=== PATIENT | female | born 1965 | race Caucasian/White ===

== ENCOUNTER 2021-12-14 20:36 | Inpatient (IN) ==
[2021-12-14] MEDS ORDERED: Naloxone 0.4 MG/ML INJ IVP PRN (23:56)
[2021-12-14] MEDS ORDERED: Melatonin 3 MG TABLET PO PRN (23:56)
[2021-12-15] MEDS ORDERED: *HR* LORazepam 1 MG TABLET PO PRN ×3 (00:44)
[2021-12-15] MEDS: Lactulose Oral Soln 20 GM/30 ML UDC PO SCH ×3 (01:50→20:18)
[2021-12-15] MEDS: Thiamine (B-1) 100 MG in 0.9 % Sodium Chloride 50 ML IVPB SCH (01:50)
[2021-12-15] MEDS: predniSONE 20 MG TABLET PO SCH ×2 (05:06→08:23)
[2021-12-15] MEDS ORDERED: Lactulose Oral Soln 20 GM/30 ML UDC PO ONE (05:12)
[2021-12-15 05:53] LABS: Monocytes % 16.3 %; Red Cell Distribution Width 14.6 % (11.5-14.5)
[2021-12-15 05:55] LABS: Basophils % 0.9 %; Hemoglobin 11.1 g/dL (11.5-15.4); Immature Platelets 13.9 % (1.1-6.1); Lymphocytes # 0.8 K/mcL (0.6-4.6); Lymphocytes % 34.8 %; Mean Corpuscular HGB Conc 32.6 g/dL (31.6-35.5); Mean Corpuscular Hemoglobin 35.4 pg (28.0-33.3); Mean Corpuscular Volume 108.3 fL (83.0-100.0); Monocytes # 0.4 K/mcL (0.0-1.3); Neutrophils # 1.1 K/mcL (1.6-8.9); Red Blood Count 3.14 M/mcL (3.82-4.97); White Blood Count 2.2 K/mcL (4.3-11.1)
[2021-12-15 05:58] LABS: INR 1.9; Prothrombin Time 20.7 Seconds (9.4-12.1)
[2021-12-15 06:09] LABS: Albumin 2.4 g/dL (3.5-5.7); Albumin/Globulin Ratio 0.6 (1.1-2.2); Bilirubin,Direct 3.2 mg/dL (0.0-0.2); Bilirubin,Indirect 2.7 mg/dL (0.0-1.0); Bilirubin,Total 5.9 mg/dL (0.3-1.0); Globulin 4.2 g/dL (2.4-3.5); Total Protein 6.6 g/dL (6.4-8.9)
[2021-12-15 06:14] LABS: BUN/Creatinine Ratio 10 (6-26); Blood Urea Nitrogen 7 mg/dL (6-20); Calcium 8.4 mg/dL (8.6-10.3); Carbon Dioxide 21 mEq/L (23-29); Chloride 112 mEq/L (98-107); Glucose 86 mg/dL (70-105); Magnesium 1.5 mg/dL (1.6-2.6); Osmolality,Calculated 285 (280-300); Phosphorous 2.3 mg/dL (2.7-4.5); Potassium 3.5 mEq/L (3.5-5.1); Sodium 139 mEq/L (136-145); Troponin I 0.03 ng/mL (< 0.04)
[2021-12-15 06:34] LABS: Platelet Count 23 K/mcL (140-400)
[2021-12-15] MEDS ORDERED: 0.9 % Sodium Chloride 1,000 ML IVC SCH (08:00)
[2021-12-15] MEDS: Folic Acid 1 MG TABLET PO SCH (08:23)
[2021-12-15] MEDS ORDERED: PrednisoLONE Oral Soln 15 MG/5 ML UDC PO SCH (09:00)
[2021-12-16 03:44] LABS: Hemoglobin 11.9 g/dL (11.5-15.4); Immature Granulocytes % 0.5 % (0-4)
[2021-12-16 03:46] LABS: Hematocrit 36.7 % (35.3-44.9); Immature Platelets 15.9 % (1.1-6.1); Lymphocytes # 0.9 K/mcL (0.6-4.6); Lymphocytes % 24.5 %; Mean Corpuscular HGB Conc 32.4 g/dL (31.6-35.5); Mean Corpuscular Hemoglobin 35.5 pg (28.0-33.3); Mean Corpuscular Volume 109.6 fL (83.0-100.0); Monocytes # 0.3 K/mcL (0.0-1.3); Monocytes % 7.8 %; Neutrophils # 2.5 K/mcL (1.6-8.9); Red Blood Count 3.35 M/mcL (3.82-4.97); Red Cell Distribution Width 14.5 % (11.5-14.5); Segmented Neutrophils % 67.2 %; White Blood Count 3.7 K/mcL (4.3-11.1)
[2021-12-16 03:56] LABS: Platelet Count 25 K/mcL (140-400)
[2021-12-16 04:07] LABS: Alanine Aminotransferase 30 Units/L (7-52); Albumin 2.5 g/dL (3.5-5.7); Albumin/Globulin Ratio 0.6 (1.1-2.2); Alkaline Phosphatase 159 Units/L (34-104); Aspartate Amino Transferase 137 Units/L (13-39); BUN/Creatinine Ratio 14 (6-26); Bilirubin,Total 6.5 mg/dL (0.3-1.0); Blood Urea Nitrogen 10 mg/dL (6-20); Calcium 8.8 mg/dL (8.6-10.3); Carbon Dioxide 23 mEq/L (23-29); Chloride 113 mEq/L (98-107); Creatine Kinase 223 Units/L (30-223); Globulin 4.5 g/dL (2.4-3.5); Glucose 109 mg/dL (70-105); Osmolality,Calculated 288 (280-300); Potassium 3.5 mEq/L (3.5-5.1); Sodium 139 mEq/L (136-145)
[2021-12-16] MEDS: Folic Acid 1 MG TABLET PO SCH (09:42)
[2021-12-16] MEDS: PrednisoLONE Oral Soln 15 MG/5 ML UDC PO SCH (09:44)
[2021-12-16] MEDS: Lactulose Oral Soln 20 GM/30 ML UDC PO SCH ×2 (09:44→20:46)
[2021-12-16] MEDS: Thiamine (B-1) 100 MG in 0.9 % Sodium Chloride 50 ML IVPB SCH (10:01)
[2021-12-16] MEDS: 0.9 % Sodium Chloride 1,000 ML IVC SCH (12:32)
[2021-12-16] MEDS: FLUoxetine 20 MG CAPSULE PO SCH (12:33)
[2021-12-16] MEDS: Ondansetron ODT 4 MG TAB.RAPDIS SL PRN (17:37)
[2021-12-16] MEDS: Mirtazapine 15 MG TABLET PO SCH (20:46)
[2021-12-17] MEDS: 0.9 % Sodium Chloride 1,000 ML IVC SCH ×2 (01:50→15:35)
[2021-12-17 03:47] LABS: Basophils % 0.2 %; Mean Corpuscular HGB Conc 32.5 g/dL (31.6-35.5); Mean Corpuscular Hemoglobin 36.1 pg (28.0-33.3)
[2021-12-17 03:49] LABS: Hematocrit 39.7 % (35.3-44.9); Hemoglobin 12.9 g/dL (11.5-15.4); Immature Granulocytes % 0.4 % (0-4); Immature Platelets 16.8 % (1.1-6.1); Lymphocytes # 1.2 K/mcL (0.6-4.6); Mean Corpuscular Volume 111.2 fL (83.0-100.0); Mean Platelet Volume 13.9 fL (9.4-12.4); Monocytes # 0.4 K/mcL (0.0-1.3); Monocytes % 8.6 %; Neutrophils # 3.3 K/mcL (1.6-8.9); Nucleated Red Blood Cells 0.4 /100 WBC (0); Red Blood Count 3.57 M/mcL (3.82-4.97); Red Cell Distribution Width 13.8 % (11.5-14.5); Segmented Neutrophils % 66.8 %
[2021-12-17 04:01] LABS: Platelet Count 26 K/mcL (140-400)
[2021-12-17 04:04] LABS: Alanine Aminotransferase 25 Units/L (7-52); Albumin 2.5 g/dL (3.5-5.7); Albumin/Globulin Ratio 0.5 (1.1-2.2); Alkaline Phosphatase 171 Units/L (34-104); Aspartate Amino Transferase 106 Units/L (13-39); BUN/Creatinine Ratio 14 (6-26); Bilirubin,Direct 3.5 mg/dL (0.0-0.2); Bilirubin,Total 7.5 mg/dL (0.3-1.0); Blood Urea Nitrogen 10 mg/dL (6-20); Calcium 8.9 mg/dL (8.6-10.3); Carbon Dioxide 22 mEq/L (23-29); Chloride 108 mEq/L (98-107); Glucose 89 mg/dL (70-105); Osmolality,Calculated 277 (280-300); Potassium 3.5 mEq/L (3.5-5.1); Sodium 134 mEq/L (136-145); Total Protein 7.5 g/dL (6.4-8.9)
[2021-12-17 04:07] LABS: Platelet Estimate Marked Decrease (Normal)
[2021-12-17] MEDS: FLUoxetine 20 MG CAPSULE PO SCH (08:21)
[2021-12-17] MEDS: Folic Acid 1 MG TABLET PO SCH (08:21)
[2021-12-17] MEDS: PrednisoLONE Oral Soln 15 MG/5 ML UDC PO SCH (08:22)
[2021-12-17] MEDS: Lactulose Oral Soln 20 GM/30 ML UDC PO SCH ×2 (08:23→20:54)
[2021-12-17] MEDS: Thiamine (B-1) 100 MG in 0.9 % Sodium Chloride 50 ML IVPB SCH (09:17)
[2021-12-17] MEDS: Mirtazapine 15 MG TABLET PO SCH (20:54)
[2021-12-18 02:51] LABS: Immature Granulocytes % 0.5 % (0-4)
[2021-12-18 03:01] LABS: Hematocrit 37.3 % (35.3-44.9); Hemoglobin 12.3 g/dL (11.5-15.4); Immature Platelets 17.5 % (1.1-6.1); Lymphocytes # 0.9 K/mcL (0.6-4.6); Mean Corpuscular Hemoglobin 36.3 pg (28.0-33.3); Mean Platelet Volume 11.7 fL (9.4-12.4); Monocytes # 0.4 K/mcL (0.0-1.3); Monocytes % 10.8 %; Neutrophils # 2.7 K/mcL (1.6-8.9); Nucleated Red Blood Cells 0.5 /100 WBC (0); Red Blood Count 3.39 M/mcL (3.82-4.97); Segmented Neutrophils % 65.7 %; White Blood Count 4.1 K/mcL (4.3-11.1)
[2021-12-18 03:13] LABS: Albumin 2.4 g/dL (3.5-5.7); Albumin/Globulin Ratio 0.5 (1.1-2.2); Bilirubin,Direct 3.8 mg/dL (0.0-0.2); Bilirubin,Indirect 3.3 mg/dL (0.0-1.0); Bilirubin,Total 7.1 mg/dL (0.3-1.0); Calcium 8.7 mg/dL (8.6-10.3); Globulin 4.5 g/dL (2.4-3.5); Potassium 3.6 mEq/L (3.5-5.1); Total Protein 6.9 g/dL (6.4-8.9)
[2021-12-18 03:34] LABS: INR 1.9; Prothrombin Time 20.7 Seconds (9.4-12.1)
[2021-12-18 03:35] LABS: Platelet Count 31 K/mcL (140-400)
[2021-12-18] MEDS: 0.9 % Sodium Chloride 1,000 ML IVC SCH ×2 (05:36→19:46)
[2021-12-18] MEDS: FLUoxetine 20 MG CAPSULE PO SCH (08:52)
[2021-12-18] MEDS: PrednisoLONE Oral Soln 15 MG/5 ML UDC PO SCH (08:53)
[2021-12-18] MEDS: Folic Acid 1 MG TABLET PO SCH (08:53)
[2021-12-18] MEDS: Lactulose Oral Soln 20 GM/30 ML UDC PO SCH ×3 (08:53→19:45)
[2021-12-18] MEDS: Thiamine (B-1) 100 MG in 0.9 % Sodium Chloride 50 ML IVPB SCH (09:02)
[2021-12-18] MEDS ORDERED: Mirtazapine 15 MG TABLET ONE (19:44)
[2021-12-18] MEDS ORDERED: Lactulose Oral Soln 20 GM/30 ML UDC ONE (19:44)
[2021-12-18] MEDS ORDERED: 0.9 % Sodium Chloride 1,000 ML ONE (19:44)
[2021-12-18] MEDS: Mirtazapine 15 MG TABLET PO SCH (19:45)
[2021-12-19] MEDS: Ondansetron ODT 4 MG TAB.RAPDIS SL PRN (04:31)
[2021-12-19] MEDS: 0.9 % Sodium Chloride 1,000 ML IVC SCH ×2 (04:32→19:53)
[2021-12-19 08:40] LABS: Eosinophils % 0.2 %
[2021-12-19 08:41] LABS: Hematocrit 37.4 % (35.3-44.9); Hemoglobin 12.1 g/dL (11.5-15.4); Immature Granulocytes % 0.2 % (0-4); Immature Platelets 13.5 % (1.1-6.1); Lymphocytes # 1.1 K/mcL (0.6-4.6); Lymphocytes % 26.2 %; Mean Corpuscular HGB Conc 32.4 g/dL (31.6-35.5); Mean Corpuscular Hemoglobin 35.7 pg (28.0-33.3); Mean Corpuscular Volume 110.3 fL (83.0-100.0); Mean Platelet Volume 12.9 fL (9.4-12.4); Monocytes # 0.5 K/mcL (0.0-1.3); Monocytes % 12.1 %; Neutrophils # 2.5 K/mcL (1.6-8.9); Red Blood Count 3.39 M/mcL (3.82-4.97); Red Cell Distribution Width 14.1 % (11.5-14.5); Segmented Neutrophils % 61.3 %; White Blood Count 4.1 K/mcL (4.3-11.1)
[2021-12-19] MEDS: FLUoxetine 20 MG CAPSULE PO SCH (08:50)
[2021-12-19] MEDS: Folic Acid 1 MG TABLET PO SCH (08:50)
[2021-12-19] MEDS: PrednisoLONE Oral Soln 15 MG/5 ML UDC PO SCH (08:51)
[2021-12-19] MEDS: Lactulose Oral Soln 20 GM/30 ML UDC PO SCH ×3 (08:51→19:51)
[2021-12-19 08:52] LABS: Platelet Count 32 K/mcL (140-400)
[2021-12-19] MEDS: Thiamine (B-1) 100 MG in 0.9 % Sodium Chloride 50 ML IVPB SCH (08:52)
[2021-12-19 09:00] LABS: Alanine Aminotransferase 34 Units/L (7-52); Albumin 2.3 g/dL (3.5-5.7); Albumin/Globulin Ratio 0.6 (1.1-2.2); Alkaline Phosphatase 172 Units/L (34-104); Aspartate Amino Transferase 133 Units/L (13-39); BUN/Creatinine Ratio 17 (6-26); Blood Urea Nitrogen 12 mg/dL (6-20); Calcium 8.8 mg/dL (8.6-10.3); Carbon Dioxide 23 mEq/L (23-29); Chloride 111 mEq/L (98-107); Glucose 86 mg/dL (70-105); Magnesium 1.7 mg/dL (1.6-2.6); Osmolality,Calculated 281 (280-300); Potassium 3.4 mEq/L (3.5-5.1); Sodium 136 mEq/L (136-145); Total Protein 6.3 g/dL (6.4-8.9)
[2021-12-19] MEDS ORDERED: Potassium Effervescent 25 MEQ TABLET.EFF PO ONE (09:18)
[2021-12-19 09:54] LABS: Macrocytosis Present (Not Present); Platelet Estimate Decreased (Normal)
[2021-12-19] MEDS: Mirtazapine 15 MG TABLET PO SCH (19:52)
[2021-12-20 01:58] VITALS: O2SAT 95
[2021-12-20 04:17] LABS: Albumin 2.5 g/dL (3.5-5.7); Albumin/Globulin Ratio 0.6 (1.1-2.2); Bilirubin,Total 7.3 mg/dL (0.3-1.0); Globulin 4.3 g/dL (2.4-3.5); Potassium 3.6 mEq/L (3.5-5.1); Total Protein 6.8 g/dL (6.4-8.9)
[2021-12-20 05:46] VITALS: PULSE 67
[2021-12-20] MEDS: Lactulose Oral Soln 20 GM/30 ML UDC PO SCH (08:18)
[2021-12-20] MEDS: FLUoxetine 20 MG CAPSULE PO SCH (08:19)
[2021-12-20] MEDS: Folic Acid 1 MG TABLET PO SCH (08:19)
[2021-12-20] MEDS: PrednisoLONE Oral Soln 15 MG/5 ML UDC PO SCH (08:20)
[2021-12-20 08:24] VITALS: BP 145/78; TEMP 98.2
== END 2021-12-20 15:55 | disposition home or self-care (01) | DRG 432 ==
LOC: 3NENU → SUATTDRO 12-15 16:40
PROVIDERS: ADMIT Internal Medicine; ATTEND Hospitalist